=== PATIENT | female | born 1945 | race Caucasian/White ===

== ENCOUNTER 2017-03-11 07:48 | Day surgery (SDC) | payer OTHER ==
[~2017-03-11] VITALS: Ht 154.9 cm; Wt 81.0 kg
[2017-03-11] MEDS ORDERED: Hold AM Insulin & AM Hypoglycemic medications in diabetic patients PRN (08:15)
[2017-03-11] MEDS ORDERED: MUPIROCIN 2% OINT 1 APPLIC/GM SYR NASAL SCH (08:15)
[2017-03-11] MEDS ORDERED: POVIDONE IODINE 5% (ANTISEPSIS KIT) 4 APPLICATIONS EACH NARE SCH (08:15)
[2017-03-11] MEDS ORDERED: NS 1000 ML IV SCH (08:15)
[2017-03-11] MEDS ORDERED: INSULIN HUMAN REGULAR 1,000 UNITS/10 ML VIAL SQ PRN (08:15)
[2017-03-11] MEDS ORDERED: SODIUM CHLORID 0.9% 500 ML IV PRN (08:15)
[2017-03-11] MEDS ORDERED: CHLORHEXIDINE GLUCONATE 2 % 1 PACK (2 CLOTHS) TOPICAL PRN (08:15)
[2017-03-11] MEDS ORDERED: LORazepam 1 MG TAB SL SCH (08:15)
[2017-03-11] MEDS ORDERED: CHLORHEXIDINE GLUCONATE 2 % 1 PACK (2 CLOTHS) TOPICAL SCH (08:15)
[2017-03-11] MEDS ORDERED: POVIDONE IODINE 5% (ANTISEPSIS KIT) 4 APPLICATIONS EACH NARE PRN (08:15)
[2017-03-11] MEDS ORDERED: NO Heparin, Lovenox, Coumadin at least 12 hours prior to procedure. PRN (08:15)
[2017-03-11] MEDS ORDERED: METOPROLOL TARTRATE 25 MG TAB PO PRN (08:15)
[2017-03-11] MEDS ORDERED: LACTATED RINGER'S 1000 ML IV PRN (08:15)
[2017-03-11 08:30] VITALS: BP 161/96; PULSE 106; RESP 18; TEMP 98.5; O2SAT 97
[2017-03-11 08:38] LABS: AUTOMATED NEUTROPHIL # 4.6 TH/MM3 (1.8-7.7); BASOPHIL # 0.1 TH/MM3 (0-0.2); BASOPHIL % 0.6 % (0.0-2.0); EOSINOPHIL # 0.2 TH/MM3 (0-0.4); EOSINOPHIL % 2.7 % (0.0-4.0); HEMATOCRIT 48.3 % (35.0-46.0); HEMO FLAGS DIFF FINAL; LYMPH % 36.5 % (9.0-44.0); LYMPHOCYTE # 3.1 TH/MM3 (1.0-4.8); MEAN CELL VOLUME 84.9 FL (80.0-100.0); MEAN CORPUSCULAR HEMOGLOBIN 29.3 PG (27.0-34.0); MEAN CORPUSCULAR HGB CONC 34.5 % (32.0-36.0); NEUT % 53.2 % (16.0-70.0); PLATELET COUNT 258 TH/MM3 (150-450); RED BLOOD COUNT 5.69 MIL/MM3 (4.00-5.30); RED CELL DISTRIBUTION WIDTH 13.4 % (11.6-17.2); WHITE BLOOD COUNT 8.6 TH/MM3 (4.0-11.0)
[2017-03-11] MEDS ORDERED: TOPR25TA PO (08:40)
[2017-03-11] MEDS ORDERED: CITA10TA4 PO (08:40)
[2017-03-11] MEDS ORDERED: METO100T9 PO (08:40)
[2017-03-11] MEDS ORDERED: ASPI81TA5 PO (08:40)
[2017-03-11] MEDS ORDERED: LEVO88TA2 PO (08:40)
[2017-03-11] MEDS ORDERED: EMPA1TAB13 PO (08:40)
[2017-03-11] MEDS ORDERED: CLON0.1T PO (08:40)
[2017-03-11] MEDS ORDERED: SIMV10TA PO (08:40)
[2017-03-11] MEDS ORDERED: VICT18IN SQ (08:40)
[2017-03-11] MEDS ORDERED: DIOV320T PO (08:40)
[2017-03-11 08:49] LABS: APTT (PATIENT) 25.5 SEC (24.3-30.1); INTERNATIONAL NORMALIZED RATIO 0.9 RATIO; PROTHROMBIN TIME - PATIENT 10.2 SEC (9.8-11.6)
[2017-03-11 08:54] LABS: BICARBONATE 30.8 MEQ/L (21.0-32.0); POTASSIUM 3.7 MEQ/L (3.5-5.1)
[2017-03-11] MEDS ORDERED: ISOPROTERENOL HCL 1 MG/5 ML AMP ONE (09:44)
[2017-03-11] MEDS ORDERED: SODIUM CHLOR 0.9% 250 ML INJ 250 ML ONE (09:45)
[2017-03-11] MEDS ORDERED: MIDAZOLAM HCL 2 MG/2 ML VIAL ONE (09:45)
[2017-03-11] MEDS ORDERED: PROPOFOL 200 MG/20 ML AMP IV ONE (09:50)
[2017-03-11] MEDS ORDERED: HEPARIN-NS/PF INJ 500 ML ONE (10:05)
--- NOTE | 2017-03-11 11:06 | CATHPROC ---
[facility] HIS Report Study Information Study Number Admission Scheduled Start Study Start [id number] 03/11/2017 03/11/2017 Mar 11 2017 9:30AM Referring Institution Admit Source Facility Department 1 Other [facility] Paragliding Instructor Physician and Clinical Staff Initial Halina Garcia Shochet Chencho Rey,RT(R) Shochet Sailaja Lee,RT(R) TECH2 Other Anesthesia, BEHAVIORAL SCIENCES INSTRUCTOR Recorder Mayuri Tang,RN Recorder Shirin Lainez,DANILO Scrub Livier Metz,HIM CODER TECH2 Equipment Time Social Work Associate Description Size Mfg Part Number Used/Scraped BIOSENSE CARRILLO CATHETER, CELSIUS, 4MM, D [id number] 10:16 FR 7 Used INC. TYPE QUAD *[id number] 09:32 [facility] INDUSTRIES PACK, CCL CUSTOM * Used *[id number] 09:32 [facility] PACER MYLES, LIMB * 2530 Used [id number] 09:32 [employer],WARM AIR CCL * Used *[id number] 09:51 [employer] CATHETER, JSN, QUAD FR 5 Used *[id number] 09:51 [employer] CATHETER, JSN, QUAD FR 5 Used *[id number] 09:51 [employer] MED[employer] CATHETER, JSN, QUAD FR 5 Used *[id number] 09:51 [employer] MED[employer] CATHETER, JSN, QUAD FR 5 Used *[id number] 09:32 [employer] MEDICAL ELECTRODE KIT, FARIBA X SURFACE * [id number] Used [id number] 10:29 [employer] SHEATH, EPS, FR5 FAST CATH FR 5 Used *[id number] 09:51 [employer] SHEATH, EPS, FR5 FAST CATH FR 5 Used *[id number] 09:51 [employer] SHEATH, EPS, FR5 FAST CATH FR 5 Used *[id number] 958971 09:51 [employer] SHEATH, EPS, FR5 FAST CATH FR 5 Used *[id number] 09:51 [employer] SHEATH, EPS, FR6 FAST CATH FR [id number] Used 09:51 [employer] SHEATH, EPS, FR8 FAST CATH FR 8 [id number] Used [employer] PAD, ELECTROSURGICAL 09:32 * [id number] Used SURGICAL GROUNDING (BLUE) Labs Hgb (g/dl) Hct (%) RBC (MIL/MM3) WBC (l/cumm) Platelets (thousands) 12.00-18.00 37.00-55.00 4.80-6.20 4.80-10.80 140.00-450.00 16.7 48.3 5.6 8.6 258 Glucose (mg/dl) BUN (mg/dl) Creatinine (mg/dl) BUN:Creatinine (1:x) 60.00-110.00 8.00-20.00 0.10-9.00 10.00-20.00 145 14 0.7 20 Na (meq/l) K (meq/l) 138.00-146.00 3.80-5.10 140 3.7 INR (PTT:PT) 0.50-2.00 0.9 CPK-MB (ng/ML) 0.00-7.00 Not Drawn Medication Medication Total Dose (Bolus/Oral) Medication Total Dosage/Unit 1% XYLOCAINE 40 mL Medications (Bolus/Oral) Medication Time Given Dosage/Unit Administered By Reason 1% XYLOCAINE 03/11/2017 10:27:20 AM 20 mL Halina Cary 20 mL 1% XYLOCAINE given in lab by Halina Cary in Left Groin via Subcutaneous. Ordered by Beni Cary. 1% XYLOCAINE 03/11/2017 10:30:03 AM 20 mL Halina Cary 20 mL 1% XYLOCAINE given in lab by Halina Cary in Right Groin via Subcutaneous. Ordered by Linda Cary. Medication (Drip) Medication Time Given Dosage/Unit Concentration/Unit Diluent (ml) Solution ISUPREL 03/11/2017 10:42:31 AM 5 mcg/min 1 mg 250 NaCl .9 5 mcg/min ISUPREL given in lab by Yesi BEHAVIORAL SCIENCES INSTRUCTOR via Peripheral IV. Pump/Drip Flow = 75 ml/hr using NaCl .9 with a concentration of 1 mg in 250 ml. Ordered by Halina Cary. ISUPREL DRIP STOPPED 03/11/2017 10:51:33 AM 0 units/hr 0 0 units/hr ISUPREL DRIP STOPPED given in lab by Anesthesia, BEHAVIORAL SCIENCES INSTRUCTOR. Pump/Drip Flow = 0 ml/hr using [Leeann ution Name]. Ordered by Halina Cary. Initial Case Assessment Cardiovascular HR Rhythm NIBP Chest Pain 82 REGULAR 170/82 0 Edema Present Skin color Skin None Normal Warm Dry Neurological State Oriented to time-place- Alert Moves all extremities person Respiration - General Respiration Rate SpO2 (%) (B/min) 16 100 Final Case Assessment Cardiovascular HR Rhythm Chest Pain 91 REGULAR 0 Edema Present Skin color Skin None Normal Warm Dry Neurological State Oriented to time-place- Alert Moves all extremities person Respiration - General Respiration Rate SpO2 (%) O2 (lpm) (B/min) 14 98 4 Chronological Log Time Study Chronological Log 9:50:58 Patient arrived via Bed. 9:50:59 Anesthesia at bedside. Assumes care of patient. 9:50:59 Patient Name, D.O.B, / Armband Verified By R.N. 9:50:59 Consent signed by the physician and the patient and verified by the Paragliding Instructor staff. 9:51:00 Pre-op and post- op instructions given; patient acknowledges understanding of instructions. 9:51:01 Verbal Stimulation=2 Physical Stimulation=2 Airway=2 Respiration=2 TOTAL=8. (0=absent, 1=li mited, 2=present) 9:51:41 Patient has been NPO for More than 6Hrs. 9:51:46 Skin Breakdown-NONE PER PT 9:52:28 Patient Warmer Placed on the Table. 9:52:29 Disposable Defibrillator Pads Placed On Patient. 9:52:31 Ag Prominences Protected 9:52:34 A # 20 IV was noted in the Antecubital (left). Grade = 0 9:52:44 A # 20 IV was noted in the Antecubital (right). Grade = 0 9:53:03 History and physical on the chart or being dictated. 9:53:06 Table restraints applied according to hospital policy Assessment: Initial Case, HR=82 BPM, Rhythm=REGULAR, TUIV=446/82 mmhg, Chest Pain=0, Edema=None , Color=Normal, Skin = Warm, Dry 9:58:03 Neurological: State=Alert, Ox3, RIVERA Respiration: Resp=16 B/min, UxE6=189 % 10:12:31 Bilateral groins prepped with 2% chlorhexidine, and with a 3 min. waiting time. 10:15:51 MD paged 10:24:15 MD arrived. Time Out. Correct patient, procedure, procedure equipment, site and side verified with physicia n present. Time 10:26:53 concurred by MD, individual staff and BEHAVIORAL SCIENCES INSTRUCTOR. Time Out #2 - Consents verified, patient in correct position, all results are labled and displa yed, safety precautions 10:26:59 taken. Time out concurred by MD, individual staff and BEHAVIORAL SCIENCES INSTRUCTOR in procedure 10:27:16 Case Start 10:27:20 20 mL 1% XYLOCAINE given in lab by Halina Cary in Left Groin via Subcutaneous. Ordered by Halina Cary. 10:27:35 Vascular access was obtained in the Fem Vein (left). 10:27:59 Vascular access was obtained in the Fem Vein (left). 10:28:00 Vascular access was obtained in the Fem Vein (left). 10:28:10 A SHEATH, EPS, FR5 FAST CATH FR 5 was advanced into the Fem Vein (left) using the Modified Seldinger technique. 10:28:21 A SHEATH, EPS, FR5 FAST CATH FR 5 was advanced into the Fem Vein (left) using the Modified Seldinger technique. 10:28:24 A SHEATH, EPS, FR5 FAST CATH FR 5 was advanced into the Fem Vein (left) using the Modified Seldinger technique. 10:30:03 20 mL 1% XYLOCAINE given in lab by Halina Cary in Right Groin via Subcutaneous. Ordered b Halina Rapp. 10:30:19 Vascular access was obtained in the Fem Vein (right). 10:30:21 Vascular access was obtained in the Fem Vein (right). 10:30:23 A SHEATH, EPS, FR6 FAST CATH FR 6 was advanced into the Fem Vein (right) using the Modified Seldinger technique. 10:30:36 A SHEATH, EPS, FR8 FAST CATH FR 8 was advanced into the Fem Vein (right) using the Modified Seldinger technique. A CATHETER, JSN, QUAD FR 5 was advanced vis Fem Vein (left) and placed in the CS. Placement was visually 10:31:56 confirmed under fluoroscopy. A CATHETER, JSN, QUAD FR 5 was advanced vis Fem Vein (left) and placed in the HIS. Placement wa s visually 10:32:25 confirmed under fluoroscopy. A CATHETER, JSN, QUAD FR 5 was advanced vis Fem Vein (left) and placed in the HRA. Placement wa s visually 10:32:52 confirmed under fluoroscopy. A CATHETER, JSN, QUAD FR 5 was advanced vis Fem Vein (left) and placed in the RVA. Placement wa s visually 10:33:16 confirmed under fluoroscopy. 10:38:13 EP STUDY IN PROGRESS 5 mcg/min ISUPREL given in lab by Anesthesia, DARRIN via Peripheral IV. Pump/Drip Flow = 75 ml/hr using NaCl .9 with 10:42:31 a concentration of 1 mg in 250 ml. Ordered by Halina Cary. 0 units/hr ISUPREL DRIP STOPPED given in lab by Anesthesia, DARRIN. Pump/Drip Flow = 0 ml/hr usin g [Solution Name]. 10:51:33 Ordered by Halina Cary. 10:56:47 Case End 10:57:39 Catheter(s) removed without difficulty 10:57:44 Sheath removed; pressure applied to access site BY ELMA METZ. MANUAL PRESSURE HELD FOR 10 MINS 10:58:16 No case complications noted. 10:58:17 Cine recording checked. 10:58:32 DOCU called. Spoke to PRICILLA 10:59:00 Bedside Report will be given. 10:59:09 Verbal Stimulation=2 Physical Stimulation=2 Airway=2 Respiration=2 TOTAL=8. (0=absent, 1=li mited, 2=present) Assessment: Final Case, HR=91 BPM, Rhythm=REGULAR, Chest Pain=0, Edema=None, Color=Normal, Ski n = Warm, Dry 10:59:26 Neurological: State=Alert, Ox3, RIVERA Respiration: Resp=14 B/min, SpO2=98 %, O2=4 lpm 11:04:15 Sterile dressing applied to site 11:04:22 Defibrillator and ground pads removed. Skin intact. 11:04:30 EP Procedure was performed. NOT ABLE TO INDUCE 11:10:08 Patient moved to [facility] End Study - Contrast Media Used In Study Contrast Total Opened (mL) Total Used (mL) Total Wasted (mL) Unspecified 0 0 0 End Study - Maximum Contrast Load Max Contrast Load (mL) 578.6 End Study - Radiation Exposure Fluoro Time (minutes) 1.7 End Study - Patient Disposition Complications Transferred To Interventional Outcome No Telemetry Bed successful
[2017-03-11] MEDS ORDERED: ATROPINE SULFATE 1 MG/ML VIAL IV PRN (12:45)
[2017-03-11] MEDS ORDERED: LORazepam 2 MG/ML VIAL IV PRN (12:45)
[2017-03-11] MEDS ORDERED: BACITRACIN OINT 0.9 GM PKT TOP ONE (12:45)
[2017-03-11] MEDS ORDERED: LIDOCAINE HCL 1% 50 ML VIAL INFIL PRN (12:45)
[2017-03-11] MEDS ORDERED: oxyCODONE/ACETAMINOPHEN 5 MG/325 MG TAB PO PRN ×2 (12:45)
[2017-03-11] MEDS ORDERED: SODIUM CHLOR 0.9% 250 ML INJ 250 ML IV PRN (12:45)
[2017-03-11] MEDS ORDERED: METOCLOPRAMIDE HCL 10 MG/2 ML VIAL IV PRN (12:45)
[2017-03-11] MEDS ORDERED: ONDANSETRON HCL 4 MG/2 ML VIAL IV PRN (12:45)
--- NOTE | 2017-03-11 14:44 | MA ---
cc: VIOLET GRIGGS M.D. DATE: 03/11/2017 TYPE OF PROCEDURES: Electrophysiology study, CS cannulation, repeat electrophysiology study on Isuprel infusion and 3-D mapping for catheter placement. HISTORY: Mrs. Moses is a 71-year-old female recurrent episode of tachyarrhythmia, was admitted for electrophysiology study and ablation. The risks, the nature and the benefit of the procedure are clearly stated to her risks include pneumothorax, cardiac perforation, stroke, need for open heart surgery and even . The patient understood and agreed to proceed. PROCEDURE After written informed consent was obtained, the patient was brought to the EP lab where she was prepped and draped in the usual sterile fashion. Conscious sedation was initiated and throughout the procedure by anesthesiologist. Once sedation verified, the right and left inguinal area was anesthetized with 2% Xylocaine. Using the modified Seldinger technique, the left femoral vein was cannulated on two occasions, three guide wires were advanced over the wire. Three 5-Norwegian Hemaquet's were advanced. Then the right femoral vein was cannulated on two occasions, two guidewires were advanced over the wire and 6, 7 and 8 Norwegian Hemaquet's were advanced. Then under fluoroscopic guidance through the 5-Norwegian Hemaquet, four 5-Norwegian Nancy curved quadripolar electrophysiology catheters were advanced on the HIS, upper right atrium coronary sinus and right ventricular apex. Basic interval was measured all within normal limits. At this point atrial pacing protocol was performed. The atrial pacing protocol course of incremental atrial pacing as well as program stimulation with one cycle length and up to one excess stimuli delivered. No tachyarrhythmia was induced. Pacing from the coronary sinus showed no pre-excitation, atrial pacing protocol was repeated at the coronary sinus no the tachyarrhythmia was induced. Then Isuprel infusion was initiated at five ella atrial pacing protocol was repeated again. Atrial pacing protocol suffer incremental atrial pacing as well as program stimulation with 110 cycle length and up to two extra stimuli delivered. No tachyarrhythmia was induced ventricular pacing protocol was repeated again there was VA conduction at this time. No tachyarrhythmia was induced. Then Isuprel was discontinued atrial and ventricular pacing protocol was repeated again no tachyarrhythmia was induced. At that point procedure was complete. All catheters were removed. The patient tolerated procedure. No incident report. Blood loss minimal. FINDINGS: 1. Electrocardiogram at baseline the patient was in sinus postprocedure electrocardiogram was unchanged. 2. Basic interval. Basic cycle length was around 848. AH was at 110 and HV was around 60 milliseconds. 3. Atrial pacing protocol Wenckebach of the node at baseline was around 360 milliseconds on Isuprel it was around 240 milliseconds. 4. AV angella ERP was around 600 to 180 milliseconds at baseline. No tachyarrhythmia was induced. 5. Ventricular pacing protocol there was no VA at baseline. There is VA on Isuprel no tachyarrhythmia was induced. CONCLUSION Negative electrophysiology study for supraventricular and ventricular tachyarrhythmia. COMMENT/RECOMMENDATIONS: The patient is going to be transferred to recovery room. Will be observed. We will be discharged home today. If in the future continue with tachyarrhythmia then I will consider a loop recorder insertion. MD ELENITA Bhagat/zahra /12:43 PM /2:27 PM
--- NOTE | 2017-03-12 22:03 | EKG ---
Date Performed: 03/11/2017 Time Performed: 08:38:08 PTAGE: 71 years EKG: Sinus rhythm Poor R wave progression - probable normal variant Borderline ECG PREVIOUS TRACING : 08/06/2004 05.25 Compared to prior tracing no significant change DOCTOR: Demar Wallace Interpretating Date/Time 03/12/2017 22:01:51
== END 2017-03-11 14:11 | disposition home or self-care (01) ==
LOC: HDOC 07:48 → HDIC 07:49 → HDOC 14:11
PROVIDERS: ATTEND Internal Medicine Interventional Cardiology
DX: I63.9 Cerebral infarction, unspecified (principal); R94.31 Abnormal electrocardiogram [ECG] [EKG]
CPT/HCPCS: 80048; 85025; 85610; 85730; 86850; 86900; 86901; 93005; 93620; 93623; C1730; C1732; J1644; J2250; J3010; J7050